=== PATIENT | male | born 1945 | race Caucasian/White ===

== ENCOUNTER → 2017-12-09 13:20 | Outpatient (CLI) | payer MEDICARE, MEDICAID, SELFPAY ==
--- NOTE | 2017-12-09 13:24 | CT_ITS ---
STUDY: CT CHEST/THORAX WITH CONTRAST REASON FOR EXAM: Male, 72 years old. Prostate cancer. RADIATION DOSAGE (If Supplied By Facility): CTDIvol = ( 21.23 ) mGy, DLP = ( 876.69 ) mGycm TECHNIQUE: Transaxial imaging was performed following intravenous administration of 100 ml of Isovue 300 contrast material. Multiplanar coronal and sagittal images were reformatted. Individualized dose optimization techniques were used for this CT. COMPARISON: None. FINDINGS: There is minor subsegmental volume loss in the anterior basilar left lower lobe. There is no demonstrated pleural abnormality. Normal heart and pericardium. A pair of lymph nodes measuring up to 1 cm are seen in the posterior mediastinal tissues between the descending thoracic aorta and azygos vein (series 6 on image 184). Normal hilar regions. Normal enhanced pulmonary arteries. There is mild atherosclerotic calcification of the aortic arch and descending thoracic aorta. There are multi-level degenerative changes of the thoracic spine. 4 mm sclerotic density in the T7 vertebra is of indeterminate etiology. 2 small sclerotic densities are also noted in the posterolateral left third rib. There is a mildly enlarged right lobe of the thyroid, extending into the retrosternal air space anterior to the bifurcation of the brachiocephalic artery There is no demonstrated abnormality of the visualized upper abdomen. CT/Chest WITH Contrast IMPRESSION: 1. Small sclerotic densities of indeterminate etiology in the T7 vertebra and the posterior lateral left third rib. One might consider bone scan to exclude osseous metastatic disease. 2. No other CT findings of thoracic metastatic disease. 3. Minor subsegmental volume loss in the left lung base. 4. Mildly enlarged right lobe of the thyroid gland. Electronically Signed: Jaxon Arambula MD at 15:37 EDT , Service support ,
--- NOTE | 2017-12-09 13:24 | CT_ITS ---
STUDY: CT ABDOMEN AND PELVIS WITH CONTRAST REASON FOR EXAM: Male, 72 years old. Prostate cancer. RADIATION DOSAGE (If Supplied By Facility): CTDIvol = ( 26.59 ) mGy, DLP = ( 1310.29 ) mGycm TECHNIQUE: Transaxial images were obtained from the dome of the diaphragm to the symphysis pubis with oral contrast. 100 ml of Isovue 300 contrast was administered. Sagittal and coronal images were reconstructed. Individualized dose optimization techniques were used for this CT. COMPARISON: None. FINDINGS: A small metal foreign body is seen in the deeper soft tissues of the posterolateral left lower chest wall (series 3 image 20). The visualized lung bases are clear. There is minor chronic left posterior pleural thickening. The visualized portions of the heart are within normal limits. Normal liver. The patent portal vein diameter is 12 mm. There are surgical clips in the gallbladder fossa consistent with a prior cholecystectomy. The common bile duct diameter is 7.5 mm. Normal spleen. Normal pancreas. Normal bilateral adrenal glands. Normal right kidney. There is posterior cortical thinning at the left upper pole and lateral cortical thinning at the midpole. Cystic changes are seen at the lateral midpole, the larger measuring 1.95 x 1.6 x 1.55 cm no hydronephrosis. The ureters empty into a nondistended small bowel segment in the right lower quadrant that empties through the ileostomy to the right of midline of the anterior abdominal wall. No hydronephrosis. Normal visualized stomach. Normal small intestine. There are a few distal left colonic diverticula consistent with diverticulosis. The appendix is visualized and appears normal. There is mild atherosclerotic calcification of the abdominal aorta and proximal iliac arteries, with iliac elongation and tortuosity but without a demonstrated aneurysm. Normal inferior vena cava. There are a few nonspecific periaortic lymph nodes in the retroperitoneum. No demonstrated suspicious adenopathy. Surgically absent urinary bladder and prostate gland. There is surgical clips and sutures along the floor of the pelvis extending along the lateral pelvic rceio. Additional surgical clips of prior adnexa measuring are noted in the common iliac distributions. 5.45 x 5 cm defect of the right rectus abdominis at the level of the ureteroileal conduit allows for a 9.3 x 6.75 x 12.55 cm hernia containing an additional loop of nondistended small bowel and its mesentery. There are degenerative changes of the visualized lumbar spine, prominently at L4-5, and degenerative arthrosis of the left sacroiliac joint. Rim sclerotic 14 mm lesion in the medial neck of the left femur above the lesser trochanter is likely benign CT/Abdomen/Pelvis WITH Contrast IMPRESSION: 1. Prior prostatectomy and cystectomy. There is a ureteral ileal conduit. No hydronephrosis. 2. 5.4 cm defect of the right rectus abdominis muscle in the area of the ureteral ileal conduit allows for a 12 cm hernia containing an additional nondistended small bowel loop and its mesentery. 3. No sign of bowel obstruction. There are a few distal left colonic diverticula without acute diverticulitis. The appendix is normal. 4. Posterior cortical thinning of the upper pole of left kidney as well as lateral cortical thinning. There are cysts in the lateral left mid pole, the measurements of 1 given [address] No CT signs of abdominal or pelvic metastatic disease. 14 mm rim sclerotic density in the neck of left femur is likely benign, but one might consider correlation with bone scan. 6. Prior cholecystectomy. 7. Mild aortoiliac atherosclerotic calcification. 8. Degenerative changes of the spine, most prominent at L4-5, and the left sacroiliac joint. Electronically Signed: Jaxon Arambula MD at 14:47 EDT , Service support ,
[2017-12-09 13:40] LABS: CREATININE FINGERSTICK 1.4 mg/dL (0.70-1.30)
== END ==
PROVIDERS: Family Provider Family Medicine; PCP Family Medicine; Referring Provider Internal Medicine Hematology & Oncology; Visit Provider Internal Medicine Hematology & Oncology
DX: C67.9 Malignant neoplasm of bladder, unspecified (principal); C61 Malignant neoplasm of prostate
CPT/HCPCS: 71260; 74177; Q9967

== ENCOUNTER → 2017-12-31 09:58 | Outpatient (CLI) | payer MEDICARE, MEDICAID, SELFPAY ==
--- NOTE | 2017-12-31 10:01 | NM_ITS ---
CLINICAL: 72-year-old male with reported history of carcinoma of the prostate. WHOLE BODY 99m Tc MDP RADIONUCLIDE BONE SCINTIGRAPHY COMPARISON: CT of the chest, abdomen and pelvis reports 12/09/2017 FINDINGS: Following the intravenous administration of 25.9 mCi of 99m Tc MDP, whole body bone images reveal: 1. Increased radiopharmaceutical concentration is identified in the acromioclavicular compartments of both shoulders, sternoclavicular compartment of the right shoulder, bilateral wrist articulations, right-left knees, the left ankle, hands bilaterally, fourth lumbar vertebra posteriorly on the left, fifth lumbar vertebra posteriorly on the right. 2. The remaining skeletal structures are scintigraphically unremarkable with normal-appearing renal images visualized. There is absence of the urinary bladder with a urinary diversion-ileal conduit observed. NM/Bone Scan Whole Body IMPRESSION: 1. The increased radiopharmaceutical concentration defined in the bilateral shoulders and wrists, knees bilaterally, left ankle, right-left hands, lower lumbar spine is most consistent with degenerative arthritis. 2. There is no definitive typical scintigraphic evidence of skeletal metastatic disease on the current examination. Electronically Signed: Hans Hoang DO at 22:51 EST Tel , Service support ,
== END ==
PROVIDERS: Family Provider Family Medicine; PCP Family Medicine; Referring Provider Internal Medicine Hematology & Oncology; Visit Provider Internal Medicine Hematology & Oncology
DX: C61 Malignant neoplasm of prostate (principal); C67.9 Malignant neoplasm of bladder, unspecified; R93.89 Abnormal findings on diagnostic imaging of other specified body structures
CPT/HCPCS: 78306

== ENCOUNTER → 2018-12-24 13:07 | Outpatient (CLI) | payer MEDICARE, MEDICAID, SELFPAY ==
[2018-07-02 13:00] VITALS: BMI 39.0
--- NOTE | 2018-12-24 13:14 | CT_ITS ---
STUDY: CT CHEST WITH CONTRAST REASON FOR EXAM: Male, 73 years old. Bladder/prostate cancer follow-up. Patient has urostomy. RADIATION DOSAGE (If Supplied By Facility): CTDIvol = ( ) mGy, DLP = ( 2315.31 ) mGycm TECHNIQUE: Transaxial imaging was performed following intravenous administration of IV Isovue 370 100ml. Individualized dose optimization techniques were used for this CT. COMPARISON: Previous study of 12/09/2017 FINDINGS: There is scarring of the left lung apex. There is no demonstrated pleural abnormality. The heart size is within normal limits. There is no pericardial effusion. No pathologically enlarged hilar or mediastinal nodes are evident. The right thyroid lobe is enlarged. Normal hilar regions. Normal enhanced pulmonary arteries. There are calcified plaques of the aortic arch. There are several tiny sclerotic foci of the left third rib, stable in the interval. There is also again noted a tiny sclerotic focus of the T7 body, also stable in the interval. There is no demonstrated abnormality of the visualized upper abdomen. CT/Chest WITH Contrast IMPRESSION: 1. Scarring of the left lung apex. 2. Enlarged right thyroid lobe. 3. Tiny sclerotic foci of the left third rib and T7 body, stable in the interval. 4. Findings are similar to the previous study. Electronically Signed: Pacheco Lee MD at 19:39 EST , Service support ,
--- NOTE | 2018-12-24 13:14 | CT_ITS ---
STUDY: CT ABDOMEN AND PELVIS WITHOUT CONTRAST REASON FOR EXAM: Male, 73 years old. Bladder/prostate cancer follow-up. Patient has urostomy. RADIATION DOSAGE (If Supplied By Facility): CTDIvol = ( 21.67 ) mGy, DLP = ( 2315.31 ) mGycm TECHNIQUE: Transaxial images were obtained from the dome of the diaphragm to the symphysis pubis without oral contrast, and without intravenous contrast. Sagittal and coronal images were reconstructed. Individualized dose optimization techniques were used for this CT. COMPARISON: Prior study of 12/09/2017 FINDINGS: Chest findings are reported separately. There is decreased attenuation of the liver consistent with steatosis. There are surgical clips in the gallbladder fossa consistent with a prior cholecystectomy. Normal spleen. Normal pancreas. Normal bilateral adrenal glands. Normal right kidney. The left kidney is atrophic and demonstrates scarring. There is a 1.8 cm left renal cyst. Ureters empty into a small bowel segment in the right pelvis which empties through the ileostomy. Normal visualized stomach. There is an anterior right pelvic wall ileostomy there are several small sigmoid diverticuli with no evidence of associated diverticulitis. The appendix is visualized and appears normal. There are calcified plaques of the abdominal aorta. Normal inferior vena cava. Surgical clips are seen in the retroperitoneum. There are several shotty retroperitoneal nodes the largest measuring 1.3 x 0.8 cm.. The urinary bladder and prostate are surgically absent. Bilateral pelvic surgical clips are noted. There are degenerative changes of the lower lumbar spine. CT/Abdomen/Pelvis W IV Cont ONLY IMPRESSION: 1. Hepatic steatosis. 2. Status post cholecystectomy, prostatectomy, and cystectomy. 3. Ureters empty into a small bowel segment in the right pelvis which empties through a right lower quadrant pelvic ileostomy. 4. Scattered colonic diverticulosis with no evidence of diverticulitis. 5. There are several shotty retroperitoneal nodes, the largest measuring 1.3 x 0.8 cm. These are stable in the interval. 6. Retroperitoneal and bilateral pelvic surgical clips are noted. 7. Atrophic left kidney. 1.8 cm left renal cyst. 8. Findings are similar to the previous study. Electronically Signed: Pacheco Lee MD at 19:53 EST , Service support ,
[2018-12-24 13:26] LABS: CREATININE FINGERSTICK 1.6 mg/dL (0.70-1.30)
== END ==
PROVIDERS: Family Provider Family Medicine; PCP Family Medicine; Referring Provider Internal Medicine Hematology & Oncology; Visit Provider Internal Medicine Hematology & Oncology
DX: C61 Malignant neoplasm of prostate (principal); C67.9 Malignant neoplasm of bladder, unspecified; C68.9 Malignant neoplasm of urinary organ, unspecified
CPT/HCPCS: 36415; 71260; 74177; 80053; 84153; 85025; 88108; 88313; Q9967